=== PATIENT | male | born 1970 | race Caucasian/White ===

== ENCOUNTER → 2023-12-07 08:17 | Outpatient (REF) | payer OTHER, SELFPAY | LOC: RCS 08:17 | PROVIDERS: ATTENDING PHYSICIAN Family Medicine | DX: R00.2 Palpitations (principal) | CPT/HCPCS: 93225; 93226 ==

== ENCOUNTER → 2024-01-03 10:18 | Outpatient (REF) | payer OTHER, SELFPAY | LOC: RCS 10:18 | PROVIDERS: ATTENDING PHYSICIAN Student in an Organized Health Care Education/Training Program; FAMILY PHYSICIAN Family Medicine | DX: R00.2 Palpitations (principal) | CPT/HCPCS: 93306 ==